=== PATIENT | female | born 1980 | race Caucasian/White ===

== ENCOUNTER 2016-06-28 09:30 | Inpatient (IN) | payer OTHER ==
--- NOTE | 2016-06-20 08:55 | HP ---
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 She felt a lump in lower inner aspect of right breast with negative ultrasound. Screening Mammogram and US performed 12/2015 were negative. Screening breast MRI was negative 02/2016. History Source: Patient Limitations to Obtaining History: No Limitations - Past Surgical History Past Surgical History: Yes: Appendectomy (2002) Additional Past Surgical History: knee arthroscopy torn meniscus 2013 - Smoking History Smoking history: Never smoked Have you smoked in the past 12 months: No - Alcohol/Substance Use Hx Alcohol Use: Yes (socially) Home Medications - Allergies Allergies/Adverse Reactions: Allergies Allergy/AdvReac Type Severity Reaction Status Date / Time No Known Allergies Allergy Verified 06/20/16 08:55 Family Disease History - Family Disease History Family Disease History: CA: Grandparent (pat GF prostate ca and melanoma), Mother (breast ca 34 35) Physical Examination Constitutional: Yes: Well Nourished, No Distress Breast(s): Yes: Other (B cup breasts symmetrical she has some thickening in lower inner aspect of right breast which is fibroaglandular in nature. Left breast negative and no palpable adenopathy) Problem List - Problems (1) Breast cancer genetic susceptibility Code(s): Z15.01 - GENETIC SUSCEPTIBILITY TO MALIGNANT NEOPLASM OF BREAST Assessment/Plan Bilateral total mastectomies retroareolar biopsies reconstruction
[2016-06-21 14:39] VITALS: BMI 28.3
[2016-06-28] MEDS ORDERED: ONDANSETRON 4 MG/2 ML VIAL IVPUSH PRN (11:57)
[2016-06-28] MEDS ORDERED: PROMETHAZINE HCL 25 MG/1 ML VIAL IVPUSH PRN (11:58)
[2016-06-28] MEDS ORDERED: LACTATED RINGERS SOLUTION 1,000 ML IV SCH (12:00)
[2016-06-28] MEDS ORDERED: HYDROmorphone *PCA* 10MG/50ML DISP.SYRIN PCA SCH (12:00)
[2016-06-28] MEDS ORDERED: PROPOFOL 20 ML ONE ×3 (12:07→12:37)
[2016-06-28] MEDS ORDERED: HYDROmorphone *PCA* 10MG/50ML DISP.SYRIN PCA ONE (12:10)
[2016-06-28] MEDS ORDERED: GENTAMICIN SO4 80 MG/2 ML VIAL ONE (12:14)
[2016-06-28] MEDS ORDERED: POLYMYXIN B SULFATE 500,000 UNIT VIAL ONE (12:14)
[2016-06-28] MEDS ORDERED: BUPIVACAINE HCL/PF 2.5 MG/ML - 30 ML VIAL IJ ONE (12:15)
[2016-06-28] MEDS ORDERED: DEXAMETHASONE SOD PHOSPHATE/PF 10 MG/ML SDV ONE (12:17)
[2016-06-28] MEDS ORDERED: MIDAZOLAM HCL 2 MG/2 ML SINGLE DOSE VIAL ONE (12:17)
[2016-06-28] MEDS ORDERED: ROCURONIUM BROMIDE 50 MG/5 ML VIAL ONE ×2 (12:37→14:16)
[2016-06-28] MEDS ORDERED: SUCCINYLCHOLINE CHLORIDE 200 MG/10 ML VIAL ONE (12:37)
[2016-06-28] MEDS ORDERED: ceFAZolin SODIUM 1 GM VIAL ONE ×2 (12:40→12:50)
[2016-06-28] MEDS ORDERED: LIDOCAINE HCL/PF 2% SDV 5ML VIAL ONE (12:40)
[2016-06-28] MEDS ORDERED: KETOROLAC TROMETHAMINE 30 MG/1 ML VIAL ONE (12:40)
[2016-06-28] MEDS ORDERED: ONDANSETRON 4 MG/2 ML VIAL ONE (12:40)
[2016-06-28] MEDS ORDERED: DEXAMETHASONE SOD PHOSPHATE 4 MG/1 ML VIAL ONE (12:40)
[2016-06-28] MEDS ORDERED: ZOLPIDEM TARTRATE 5 MG TABLET PO PRN (12:55)
[2016-06-28] MEDS ORDERED: ONDANSETRON 4 MG/2 ML VIAL IVPB PRN (12:55)
[2016-06-28] MEDS ORDERED: ACETAMINOPHEN 325 MG TABLET (FP) PO PRN (12:55)
[2016-06-28] MEDS ORDERED: DEXTROSE 5%-0.45% SALINE 1,000 ML IV SCH (13:00)
[2016-06-28] MEDS ORDERED: HYDROmorphone HCL/PF 1 MG/ML VIAL (FOR PYXIS CHARGING ONLY) ONE (13:31)
[2016-06-28] MEDS ORDERED: METOPROLOL TARTRATE 5 MG/5 ML VIAL ONE (14:34)
[2016-06-28] MEDS ORDERED: GUM MASTIC/STORAX/MSAL/ALCOHOL 1 DRP DROPSBTL MC ONE (15:32)
[2016-06-28] MEDS ORDERED: NEOSTIGMINE METHYLSULFATE 0.5 MG/ML - 10 ML MDV ONE (15:32)
[2016-06-28] MEDS ORDERED: GLYCOPYRROLATE 0.2 MG/1 ML VIAL ONE (15:33)
[2016-06-28] MEDS: CEFAZOLIN 1 GM/D5W 50 ML IVPB SCH ×2 (17:25→20:52)
[2016-06-29] MEDS: CEFAZOLIN 1 GM/D5W 50 ML IVPB SCH ×4 (02:30→20:32)
--- NOTE | 2016-06-29 08:42 | PN ---
Addendum entered and electronically signed by Pamella Kilgore 06/29/16 08:46: S/P bilateral total mastectomies with implant reconstruction Original Note: Progress Note, Physician Chief Complaint: High risk breast cancer due to genetic mutarion History of Present Illness: patient is eating no nausea or vomiting OOb using spirometry, pain managed by SCIENTIFIC ARTIST - Current Medication List Current Medications: Active Medications Acetaminophen (Tylenol -) 650 mg PO Q4H PRN PRN Reason: FEVER Fentanyl (Sublimaze Injection -) 50 mcg IVPUSH [id number] PRN PRN Reason: PAIN Stop: 07/01/16 11:57 Hydromorphone HCl (Dilaudid Microbiology Lab Technician -) 10 mg SCIENTIFIC ARTIST SCIENTIFIC ARTIST MIKE PRN Reason: Protocol Stop: 07/01/16 11:59 Last Admin: 06/28/16 16:15 Dose: 0.2 mg Lactated Ringer's (Lactated Ringers Solution) 1,000 mls @ 75 mls/hr IV ASDIR MIKE Last Admin: 06/28/16 17:25 Dose: Not Given Cefazolin Sodium (Ancef 1 Gm Premixed Ivpb -) 50 mls @ 100 mls/hr IVPB Q6H-IV MIKE Stop: 07/05/16 14:59 Last Admin: 06/29/16 02:30 Dose: 100 mls/hr Dextrose/Sodium Chloride (D5-1/2ns -) 1,000 mls @ 100 mls/hr IV ASDIR MIKE Last Admin: 06/28/16 17:25 Dose: Not Given Ondansetron HCl (Zofran Injection) 4 mg IVPB Q6H PRN PRN Reason: NAUSEA AND/OR VOMITING Zolpidem Tartrate (Ambien -) 5 mg PO HS PRN PRN Reason: Insomnia - Objective Vital Signs: Vital Signs Temperature 98.4 F 06/29/16 06:26 Pulse Rate 86 06/29/16 06:26 Respiratory Rate 18 06/29/16 06:26 Blood Pressure 104/61 06/29/16 06:26 O2 Sat by Pulse Oximetry (%) 100 06/29/16 06:26 Constitutional: Yes: Well Nourished, No Distress Breast(s): Yes: Other (Bilateral breast echymosis flap viable incicion intact steristrips in place monserrat drain functioning dressing changed) Problem List - Problems (1) Breast cancer genetic susceptibility Code(s): Z15.01 - GENETIC SUSCEPTIBILITY TO MALIGNANT NEOPLASM OF BREAST Assessment/Plan continue IV antibiotics OOb SCIENTIFIC ARTIST to be DC'd after lunch and then percocet prn Discharge planning for tomorrow
[2016-06-29 09:17] LABS: MCH 28.4 pg (25.7-33.7); MCHC 32.2 g/dl (32.0-36.0); MEAN CELL VOLUME 88.2 fl (80-96); MEAN PLT VOLUME 8.7 fl (7.5-11.1); PLATELET COUNT 213 K/MM3 (134-434); RDW 12.5 % (11.6-15.6); WHITE BLOOD COUNT 14.1 K/mm3 (4.0-10.0)
--- NOTE | 2016-06-29 10:21 | PN ---
Progress Note (short form) - Note Progress Note: 36F POD1 s/p b/l mastectomy and reconstruction under GA-ETT doing well. Pt had b /l PECS blocks and dilaudid IV SENIOR COUNSEL COMMERCIAL for post-operative pain control. Pt states that she is comfortable, AVSS, reports no anesthetic complications. Dilaudid IV SENIOR COUNSEL COMMERCIAL to be d/c'd after lunch today.
[2016-06-29] MEDS ORDERED: OXYCODONE/APAP 5/325MG COMBO TABLET PO PRN (13:01)
--- NOTE | 2016-06-29 13:04 | PN ---
Progress Note, Physician Chief Complaint: Pt laying in bed comfortably with bear hugger on. History of Present Illness: Pt is s/p bilateral mastectomies with direct implant placement with alloderm - Current Medication List Current Medications: Active Medications Acetaminophen (Tylenol -) 650 mg PO Q4H PRN PRN Reason: FEVER Fentanyl (Sublimaze Injection -) 50 mcg IVPUSH [id number] PRN PRN Reason: PAIN Stop: 07/01/16 11:57 Hydromorphone HCl (Dilaudid Special Assets Officer -) 10 mg COMMUNICATIONS ADMINISTRATOR COMMUNICATIONS ADMINISTRATOR MIKE PRN Reason: Protocol Stop: 07/01/16 11:59 Last Admin: 06/28/16 16:15 Dose: 0.2 mg Lactated Ringer's (Lactated Ringers Solution) 1,000 mls @ 75 mls/hr IV ASDIR MIKE Last Admin: 06/28/16 17:25 Dose: Not Given Cefazolin Sodium (Ancef 1 Gm Premixed Ivpb -) 50 mls @ 100 mls/hr IVPB Q6H-IV MIKE Stop: 07/05/16 14:59 Last Admin: 06/29/16 09:42 Dose: 100 mls/hr Dextrose/Sodium Chloride (D5-1/2ns -) 1,000 mls @ 100 mls/hr IV ASDIR MIKE Last Admin: 06/28/16 17:25 Dose: Not Given Ondansetron HCl (Zofran Injection) 4 mg IVPB Q6H PRN PRN Reason: NAUSEA AND/OR VOMITING Zolpidem Tartrate (Ambien -) 5 mg PO HS PRN PRN Reason: Insomnia - Objective Vital Signs: Vital Signs Temperature 98.4 F 06/29/16 06:26 Pulse Rate 86 06/29/16 06:26 Respiratory Rate 18 06/29/16 06:26 Blood Pressure 104/61 06/29/16 06:26 O2 Sat by Pulse Oximetry (%) 100 06/29/16 06:26 Constitutional: Yes: Well Nourished, No Distress Eyes: Yes: WNL HENT: Yes: WNL Neck: Yes: WNL Cardiovascular: Yes: WNL Respiratory: Yes: WNL Gastrointestinal: Yes: WNL ...Rectal Exam: Yes: Deferred Breast(s): Yes: Other (Bilateral breasts with appropriated swelling and ecchymosis. 4 SARITA drains to suction. Incisions c/d/i. No s/s of infection. steri strips in place) Extremities: Yes: WNL Wound/Incision: Yes: Clean/Dry Neurological: Yes: WNL Additional Findings/Remarks: Pt doing well s/p bilateral mastectomies with direct implant placement. Cont pain management cont bear hugger cont SARITA drains to suction Possible d/c home tomorrow Labs: CBC, BMP 06/29/16 07:50
--- NOTE | 2016-06-29 13:41 | OP ---
DATE OF OPERATION: 06/28/2016 PREOPERATIVE DIAGNOSIS: High risk for breast cancer, PALB2 positive. POSTOPERATIVE DIAGNOSIS: High risk for breast cancer, PALB2 positive. PROCEDURE: Bilateral total nipple sparing mastectomy through an inframammary approach with bilateral direct implant reconstruction. PRIMARY SURGEON: Yared Sears M.D. COMMUNICATIONS PROFESSIONAL: Wilmer Madrid PRIMARY SURGERY: To the bilateral direct implant reconstruction is Yared Kiser M.D., with his printing assistant, Wilmer Corea COMPLICATIONS: There were no complications. ANESTHESIA: General endotracheal anesthesia. INDICATION: Briefly, the patient is a 35-year-old premenopausal white female of northern [place] heritage, but no Hindu heritage. She has a strong family history with her mother who from breast cancer at age 35. Paternal grandfather had prostate cancer melanoma. The patient ended up testing PALB2 positive. She had had a mammography and ultrasound December 2015, which turned out to be negative. MRI performed February 2016 was negative. She was seen in consultation regarding risk reduction strategies, and decided to undergo bilateral prophylactic mastectomies. The patient understood our nipple-sparing technique, and understood all risks and complications including risk of implant necrosis, nipple loss, hematoma, and infection. The patient was seen by our plastic surgeon, and she understood the direct implant reconstruction technique and scheduled surgery. The patient is brought in on June 28, 2016, and in the holding area site verification is made, and informed consent was obtained. She was marked preoperatively by the plastic surgeon. She did sign consent for the nipple sparing registry program. DESCRIPTION OF PROCEDURE: The patient was brought into the operating room and laid on the OR table in the supine position. Venodynes were placed on the lower extremities prior to induction. She received 2 g of Ancef prior to incision. Both breasts were sterilely prepped and draped in the usual sterile fashion. She underwent general endotracheal anesthesia. Both breasts were sterilely prepped and draped in the usual fashion, and bilateral inframammary incisions were marked at to about 8 cm in length in the inframammary folds symmetrically. The left mastectomy was first performed. The incision was made, and the skin edges were everted, and the breast was retracted inferiorly using [place] clamps. The skin flap was raised superiorly to the level of the clavicle, medially to the level of the sternum, laterally to the level of the latissimus, and inferiorly below the level of the inframammary fold. The breast was taken out up to pectoralis major muscle using electrocautery from inferomedial to superolaterally completely removed intact. It was oriented with a long lateral, short superior suture and weighed to allow for appropriate cosmetic result. Skin flaps were trimmed for good cosmetic result. Hemostasis was achieved using electrocautery. A retroareolar biopsy was taken underneath the left nipple areolar complex and sent for frozen section, came back negative, so the left nipple was spared. The wound was copiously irrigated and hemostasis was achieved. The right breast was then approached, again an inframammary incision was about symmetrical to the left incision about 8 cm in length. The skin edge was everted and breast was retracted inferiorly using Perez clamps. The skin flap was raised using the peak radiofrequency device superiorly to the level of the clavicle, medially to the level of the sternum, laterally to the level of the latissimus, and inferiorly below the level of the inframammary fold. The breast was taken out up to pectoralis major muscle using electrocautery from inferomedial to superolaterally, completely removed intact. It was oriented with a long lateral, short superior suture, and weighed to allow for appropriate cosmetic result. Skin flaps were trimmed for good cosmetic result, and hemostasis was achieved using electrocautery. A retroareolar biopsy was taken underneath the right nipple areolar complex and sent for frozen section, it came back negative, so the right nipple was spared. The wound was copiously irrigated with warm sterile saline. At this point, Dr. Kiser became the primary surgeon to perform bilateral direct implant reconstructions. He placed these in the subpectoral location using Alloderm to allow for the direct implant reconstruction. Two Harvinder drains will be placed around each reconstruction and brought through separate stab incisions on the lateral skin flaps. All incisions will be closed by plastic surgery, and this will be dictated separately. The patient did have a pectoral nerve block in the holding area prior to the surgery for postoperative pain control. We did use the SPY skin perfusion device after the mastectomies and after the bilateral reconstructions which showed good blood flow in both skin flaps and nipple areolar complexes. The drains have been placed on SARITA suction. The patient will be extubated and brought to the post-anesthesia care unit, and will be admitted postoperatively for pain management and wound management, and will be placed on a ARCADE GAME TECHNICIAN for postoperative pain control. All sponge, needle counts are correct at the end of the case. Estimated blood loss was about 100 mL. She hemodynamically stable throughout. YARED SEARS M.D. [id number]
[2016-06-29] MEDS: OXYCODONE/APAP 5/325MG COMBO TABLET PO PRN ×2 (16:30→20:32)
[2016-06-30] MEDS: CEFAZOLIN 1 GM/D5W 50 ML IVPB SCH ×2 (02:13→09:40)
[2016-06-30] MEDS: OXYCODONE/APAP 5/325MG COMBO TABLET PO PRN ×3 (02:30→10:10)
[2016-06-30 06:22] VITALS: BP 117/62; PULSE 94; TEMP 98
--- NOTE | 2016-06-30 09:51 | DS ---
Physical Examination Vital Signs: Vital Signs Temperature 98.0 F 06/30/16 06:00 Pulse Rate 94 H 06/30/16 06:00 Respiratory Rate 18 06/30/16 08:37 Blood Pressure 117/62 06/30/16 06:00 O2 Sat by Pulse Oximetry (%) 93 L 06/30/16 08:37 Constitutional: Yes: Well Nourished, No Distress Wound/Incision: Yes: Clean/Dry, Well Approximated (Flaps are viable w/o signs of infection. Left chest wall ecchymosis w/o gross hematoma) Labs: CBC, BMP 06/29/16 07:50 Discharge Summary Reason For Visit: GENETIC SUSCEPTIBILITY Current Active Problems Breast cancer genetic susceptibility (Acute) Procedures: Principal: Bilateral NS-MTX's with Implants Condition: Good - Instructions Diet, Activity, Other Instructions: Post Operative Instructions - [facility] We hope your recovery will be uneventful. For those of you who have been given general anesthesia, there is a possibility you might have some lightheadedness and possibly nausea. It is important that each patient, especially those who have had general anesthesia, follow these instructions, please: 1. Do NOT operate a motor vehicle for 24 hours. 2. Do NOT drink any alcoholic beverages for 24 hours. 3. Do NOT take any sedatives, narcotics, or tranquilizers for 24 hours unless specifically ordered by your surgeon. 4. Do NOT undertake any strenuous exercise or outside activity for 24 hours unless specifically permitted by your surgeon. 5. Eat light foods that are easy to digest. If you have any problems with nausea and vomiting, lie down and rest. If it continues, call your surgeon. 6. Call your surgeon AT ONCE if you have problems with: a. Bleeding b. Urinating c. Excessive pain or drainage d. Numbness If any problems occur, call your physician first. If you cannot reach him/her, call the Ambulatory Surgery Unit at [phone], or the Emergency Room at . Follow up with Drs. Nuñez / Perez in 7 days. Medication: Vicodin E-S OR Percocet 1-2 tablets every 4-6 hrs as needed for 5-7 days. Wound Care: Keep wound dry and clean for 48 hours. You may remove the dressing after 48 hours and may shower. Keep steri-strips in place until follow-up appointment No heavy lifting or strenuous activities. BREAST SURGERY INSTRUCTIONS Darrin Nuñez M.D., FACS Josh Nuñez M.D., BRYSON Todd M.D., FACS 1. Please call the office at to make a follow up appointment with your surgeon. This number can be also used for any urgent issues you may have. 2. Call us immediately if any of the following occur: *Bleeding from the incision or drain site (a small amount is normal) *Fever or chills *Redness and worsening tenderness around the surgical site *Drainage of pus or fluid from the incision or drain site 3. You may change the surgical dressing two (2) days after your surgery, and may shower then. If you have drains, you may shower after they have been removed, until then take a sponge bath. 4. It is normal for there to be some bruising and tenderness around the surgical site, and the breast may also be firm in this area. 5. Please wear a comfortable bra (sports or surgical bra) all day and all night until your first follow-up visit with your surgeon. 6. The pain medicine you have been prescribed may make you constipated; make sure you drink plenty of water. You may use an over the counter laxative if needed. 7. You may resume your normal diet after surgery, although you may want to avoid rich foods for the first twenty-four (24) hours after surgery. Alcoholic drinks should be avoided while taking the prescribed pain medicine. 8. You may resume normal activities as long as there is no discomfort, but do not do upper body exercises until after your follow-up appointment. Do not lift anything heavier than a large phone book. You may resume driving once you have stopped taking the prescribed pain medicine and feel comfortable doing arm movements. WEAR BRA, NO shower, empty and record SARITA output twice daily Referrals: Josh Nuñez MD [Staff Physician] - Darren Kiser MD [Staff Physician] - Disposition: HOME - Home Medications Comprehensive Discharge Medication List: Ambulatory Orders Pnv95/Ferrous Fumarate/FA [ Caplet] 1 each PO HS 06/28/16 Cefadroxil 500 mg PO BID #20 capsule 06/29/16 Oxycodone HCl/Acetaminophen [Percocet 5-325 mg Tablet] 1 - 2 tab PO Q6H PRN #30 tab MDD 6 06/29/16
[2016-06-30] MEDS ORDERED: PRENATAL VITAMINS W/ FOLIC ACID TABLET (FP) PO SCH (22:00)
--- NOTE | 2016-07-01 19:07 | OP ---
DATE OF OPERATION: 06/28/2016 PREOPERATIVE DIAGNOSES: 1. Bilateral acquired chest wall deformity status post bilateral mastectomy (611.89). 2. Personal history of genetic carcinoma. POSTOPERATIVE DIAGNOSES: 1. Bilateral acquired chest wall deformity status post bilateral mastectomy (611.89). 2. Personal history of genetic carcinoma. PROCEDURE: 1. Right immediate breast reconstruction utilizing immediate insertion of silicone breast implant and AlloDerm reconstruction. 2. Left immediate breast reconstruction utilizing immediate insertion of silicone breast implant and AlloDerm reconstruction. 3. Intravenous injection of isocyanide green dye and intraoperative diagnostic evaluation of non-coronary intraoperative fluorescein vascular angiography x 2. 4. SPY intraoperative angiogram, which showed good blood flow. NOTE: This is a combined dictation with Dr. Yared Nuñez. Dr. Nuñez's dictation will be dictated under separate cover. SURGEON: Dr. Moshe Kiser CARBIDE GRINDER: KRISTEN Corea ANESTHESIA: General. ANESTHESIOLOGIST: OPERATIVE PROCEDURE IN DETAIL: The patient was taken to the operating room. After induction of general anesthesia in the supine position, both arms were extended and padded. Venodyne boots were placed. The entire chest wall was painted with ChloraPrep solution over its entire extent, and sterile drapes were placed in the usual fashion. The markings, which had been made in the standing position preoperatively, were reoutlined with the patient's knowledge. Time-out procedure was performed. Attention was turned by Dr. Nuñez to the mastectomies. Bilateral inframammary incisions were made and Dr. Nuñez performed mastectomies. This will be dictated under separate cover. Upon completion of the mastectomies, the wounds were copiously irrigated and attention was turned to the right breast. A subpectoral dissection was begun on the right breast, superiorly from the second rib, medially to the sternal fibers, and down to the inframammary fold, elevating the pectoralis major muscle from its insertion. At this point, an 8.0 x 16.0 sheet of AlloDerm was brought into the field and sutured superiorly along the pectoralis major muscle after rehydration. This was carried along the lateral mammary fold and down the side of the breast reconstruction. She had AlloDerm Contour perforated medium sheets placed bilaterally. At this point, a Natrelle [place] cohesive style SCF 450 mL implant was chosen. The left breast tissue removed was 245 gm, and the right breast approximately 220 gm. This implant was placed and then sutured with 3-0 Vicryl suture continued along the inframammary fold, completely covering the implant itself. The exact same procedure was carried out symmetrically on the opposite breast, also placing a Natrelle Inspira cohesive style SCF 450 mL implant in the same subpectoral pocket. Good symmetry was seen in the sitting position. After the implants were in place, the patient was injected with 10 mL of Isocyanide green dye and the Spy imaging system was brought into the field. The skin flowed to the right and left breasts and the nipple areolar complex, and the entire skin flaps were evaluated and seen to be viable with good blood flow. Two Vishnu-Cabrales drains were brought out through separate stab wounds laterally. The Smart Infuser pump catheter was inserted medially and into the subpectoral position. Both wounds were closed symmetrically using 3-0 PDS suture on the deep tissue, 3-0 in a deep dermal fashion, and 4-0 in a subcuticular fashion. Both wounds were dressed sterilely with Mastisol and Steri-Strips with a surgical bra and a compression strap. The patient tolerated the procedure well. She was awakened, extubated and transferred to the recovery room in satisfactory condition. The inventory control assistant was present during the entire portion of the operation and closure. YARED KISER M.D. [id number]
--- NOTE | 2016-07-03 15:25 | PATH ---
Surgical Pathology Report Patient Name: MELVA BHARDWAJ Med. Rec. #: [id number] /Age/Gender: 1980 (Age: 36) / F Account: [id number] Location: [facility] MED-SURG Taken: 06/28/2016 Received: 06/28/2016 Reported: 07/03/2016 Physicians: Josh Nuñez M.D. Specimen(s) Received A: RIGHT RETROAREOLAR BIOPSY. FS B: LEFT RETROAREOLAR BIOPSY. FS C: RIGHT MASTECTOMY D: LEFT MASTECTOMY Clinical History PALB2 + High risk genetic Intraoperative Consult Diagnosis A. Retroareolar biopsy, frozen section: No carcinoma identified. B. Retroareolar biopsy, frozen section: No carcinoma identified. Dr. Nunez, 06/28/16. Final Diagnosis A. RETROAREOLA, RIGHT, BIOPSY (FS): BENIGN BREAST TISSUE. B. RETROAREOLA, LEFT, BIOPSY (FS): BENIGN BREAST TISSUE. C. BREAST, RIGHT, NIPPLE-SPARING MASTECTOMY: BREAST TISSUE SHOWING FOCAL ATYPICAL LOBULAR HYPERPLASIA (ALH) AND FIBROCYSTIC CHANGES. D. BREAST, LEFT, NIPPLE-SPARING MASTECTOMY: BENIGN BREAST TISSUE. Electronically Signed Anabelle Trujillo M.D. Gross Description A. Received fresh, labeled "right retroareolar biopsy" is a 1.0 x 0.8 x 0.2 cm fragment of dunham-pink soft tissue. The specimen is entirely submitted for frozen section. Frozen section residue is submitted entirely in one cassette. B. Received fresh, labeled "left retroareolar biopsy" is 1.6 x 1.0 x 0.2 cm fragments of dunham-pink soft tissue. The specimen is submitted entirely for frozen section. Frozen section residue is submitted entirely in one cassette. AF/06/28/2016 C. Received in formalin, labeled "right mastectomy," is a 214 g, 13.5 x 11.5 x 3.0 cm. right mastectomy specimen with a short suture marking the superior aspect and a long suture marking the lateral aspect of the specimen, per the surgeon. There is no skin or nipple present. The deep margin is inked black and the anterior soft tissue margin is inked blue. The specimen is serially sectioned from lateral to medial. Sectioning reveals multiple foci of dense white fibrous tissue. Seater Grinder sections are submitted in 13 cassettes as follows: 1-3-upper outer quadrant; 4-5-lower outer quadrant; 6-8-upper inner quadrant; 9-11-lower inner quadrant; 12-anterior soft tissue margin; 13-deep margin. Time to formalin fixation: 30 minutes Total formalin fixation time: Approximately 27 hours. D. Received in formalin, labeled "left mastectomy," is a 216 gram, 14.3 x 10.5 x 3.5 cm. left mastectomy specimen with a short suture marking the superior aspect and a long suture marking the lateral aspect of the specimen, per the surgeon. There is no skin or nipple present. The deep margin is inked black and the anterior soft tissue margin is inked blue. The specimen is serially sectioned from medial to lateral. Sectioning reveals multiple foci of white fibrous tissue. Seater Grinder sections are submitted in 14 cassettes as follows: 1-3-upper outer quadrant; 4-6-lower outer quadrant; 7-9-upper inner quadrant; 10-12-lower inner quadrant; 13-anterior soft tissue margin; 14-deep margin. Time to formalin fixation: 10 minutes Total formalin fixation time: Approximately 27 hours. DL/06/29/2016 final/06/28/2016
== END 2016-06-30 15:22 | disposition home or self-care (01) | DRG 585 ==
LOC: FM/S 11:26
PROVIDERS: ADMIT Surgery Surgical Oncology; ATTEND Surgery Surgical Oncology
PROC: 0HTV0ZZ Resection of Bilateral Breast, Open Approach (ICD-10-PCS; principal; 2016-06-28 13:05)
PROC: 0HUV0JZ Supplement Bilateral Breast with Synthetic Substitute, Open Approach (ICD-10-PCS; 2016-06-28 13:05)
DX: Z40.01 Encounter for prophylactic removal of breast (principal); Z15.01 Genetic susceptibility to malignant neoplasm of breast; M95.4 Acquired deformity of chest and rib
CPT/HCPCS: 36415; 84703; 85027; 88307-TC; 88331-TC; 94010; 94760